=== PATIENT | female | born 1955 | race Caucasian/White ===

== ENCOUNTER → 2022-12-12 | Outpatient (CLI) | payer OTHER | END | disposition home or self-care (01) | LOC: RAH 11:22 | PROVIDERS: ATTEND Internal Medicine | DX: Z12.31 Encounter for screening mammogram for malignant neoplasm of breast (principal) | CPT/HCPCS: 77067 ==

== ENCOUNTER → 2023-12-24 | Outpatient (CLI) | payer OTHER | END | disposition home or self-care (01) | LOC: RAH 08:32 | PROVIDERS: ATTEND Internal Medicine | DX: Z12.31 Encounter for screening mammogram for malignant neoplasm of breast (principal); R92.30 Dense breasts, unspecified | CPT/HCPCS: 77067 ==

== ENCOUNTER → 2024-07-27 | Outpatient (CLI) | payer OTHER ==
--- NOTE | 2024-07-27 12:11 | HMCIMG ---
MR SPINAL CANAL, LUMBAR WO CON HISTORY: Lumbar stenosis COMPARISON: None TECHNIQUE: MRI of the lumbar spine was performed utilizing multiple pulse sequences in axial , coronal and sagittal plane. Patient was not given contrast through intravenous route. FINDINGS: Heterogeneous signal intensity is seen of the visualized bony structure may be related to marrow infiltrative process. No loss of vertebral height is seen. There is straightening of normal lumbar curvature which may be related to muscle spasm or positioning. Degenerative disc signals are present at all lumbar spine levels. Visualized distal conus is unremarkable. There is 8 mm left renal cyst. The study is limited due to poor positioning. At the L1-2 level, there is mild annular disc bulge with minimal ligamentum flavum hypertrophy causing anterior thecal sac compression without associated neural foraminal stenosis. The thecal sac measures approximately 10.1 mm in its anterior posterior dimension. At the L2-3 level, there is mild annular disc bulge with minimal ligamentum flavum hypertrophy causing anterior thecal sac compression without associated neural foramina stenosis. The thecal sac measures approximately 10.9 mm in its anterior posterior dimension. At the L3-L4 level, there is mild annular disc bulge with minimal ligamentum flavum hypertrophy causing anterior thecal sac compression without associated neural foramina stenosis. The thecal sac measures approximately 8.7 mm in its anterior posterior dimension. At the L4-5 level, there is mild annular disc bulge with minimal ligamentum flavum hypertrophy causing anterior thecal sac compression without associated neural foramina stenosis. The thecal sac measures approximately 8.4 mm in its anterior posterior dimension. At the L5-S1 level, there is spondylotic disc causing anterior thecal sac compression with bilateral lateral recess stenosis and bilateral neural foraminal stenosis. The thecal sac measures approximately 6.1 mm in its anterior posterior dimension. IMPRESSION: 1. DJD with lumbar spine spondylosis as described above.
== END | disposition home or self-care (01) ==
LOC: RAH 10:16
PROVIDERS: ATTEND Pain Medicine Interventional Pain Medicine
DX: M47.817 Spondylosis without myelopathy or radiculopathy, lumbosacral region (principal); M51.369 Other intervertebral disc degeneration, lumbar region without mention of lumbar back pain or lower extremity pain; M48.07 Spinal stenosis, lumbosacral region; M53.87 Other specified dorsopathies, lumbosacral region; N28.1 Cyst of kidney, acquired
CPT/HCPCS: 72148